=== PATIENT | male | born 1995 | race Two or more races ===

== ENCOUNTER 2024-07-14 04:07 | Emergency (ER) | payer SELFPAY ==
[2024-07-14 04:09] VITALS: BMI 29.0
--- NOTE | 2024-07-14 04:17 | PD.EDADULT ---
ED General RME/HPI General Chief complaint: General Adult/Misc Complain Stated complaint: SEVERE DEHYDRATION Time Seen by Provider: 07/14/24 04:16 Arrival date/time: 07/14/24 04:07 RME / HPI RME / HPI narrative: Patient is 28 years old male with past medical history of marijuana use presented to the ED complaining of nausea, vomiting and dehydration. He reports he smoked marijuana 5 days ago and over the next day he developed multiple episodes of vomiting and was not able to hold anything down. His symptoms were improving and today he was just feeling nauseous however he also started feeling severely dehydrated because of poor oral intake within the last 5 days. He denies any fever, chills, diarrhea, melena, bloody emesis, chest pain or shortness of breath. He reports he smokes marijuana but not daily anymore and whenever he smokes he develop this symptoms. He denies any other illicit drug use or smoking tobacco. He drinks alcohol socially. Related Data Home Medications ?Medication ?Instructions ?Recorded ?Confirmed ranitidine HCl 150 mg tablet 150 mg PO BID 12/01/18 12/01/18 sucralfate 1 gram tablet 1 g PO BID 12/01/18 12/01/18 Previous Rx's ?Medication ?Instructions ?Recorded ondansetron 4 mg disintegrating See Rx Instructions .Route 08/24/18 tablet .COMPLEX #20 tabs ondansetron 4 mg disintegrating 4 mg PO Q8H PRN nausea and 07/14/24 tablet vomiting #14 tabs Allergies Allergy/AdvReac Type Severity Reaction Status Date / Time No Known Allergies Allergy Verified 07/14/24 04:08 Review of Systems Review of Systems Systems Reviewed: All systems reviewed, normal except as documented ED Exam Narrative Physical exam: Gen: Well-developed and well-nourished. HEENT: NCAT, PERRLA, EOMI, MMM, anicteric conjunctivae. CVS: normal S1 and S2. RRR. No M/R/G. Resp: CTA B/L. No rhonchi, rales, crackles or wheezing. Abd: soft, non-tender, non-distended. BS+ in all 4 quadrants. MSK: Good ROM in BUE & BLE. No edema or rash. Neuro: CN II-XII grossly intact. Strength 5/5 in BUE & BLE. Alert and oriented x3. Psych: appropriate mood and affect. Course Quality Measures none Orders Category Date Time Status Ondansetron Odt [Zofran Odt] Med 07/14/24 04:24 Once 4 mg PO X1 ONE Vital Signs Vital signs: Vital Signs Temperature 99.0 F 07/14/24 04:20 Pulse Rate 64 07/14/24 04:20 Respiratory Rate 18 07/14/24 04:20 Blood Pressure 142/72 H 07/14/24 04:20 Pulse Oximetry (%) 97 07/14/24 04:20 Oxygen Delivery Method Room Air 07/14/24 04:20 [facility] Patient data External records reviewed:: [facility] previous records Clinical information provided by:: patient Social determinants that could affect healthcare access:: substance use Patient has the following chronic illnesses:: Marijuana use disorder How is presenting disease/condition affected by chronic disease/condition?: caused by Evaluation data The following diagnostics were reviewed and interpreted by me:: other (specify) Lab and/or radiology exams considered but not ordered:: cbc, cmp Interpretation Summary: No diagnostics indicated. Medications Medications considered but not ordered:: None. Medication administrations:: Medication Administration History Ondansetron HCl (Ondansetron Odt 4 Mg Tabrap) 4 mg PO X1 ONE; Protocol Stop: 07/14/24 04:25 Ondansetron 4 mg p.o. Consultations Consultation(s) initiated? (list below): No Diagnosis Differential Diagnosis ED Complaint MDM: Cannabis hyperemesis syndrome, food poisoning Most likely diagnosis given after review of the tests above:: Cannabis hyperemesis syndrome Admission Indicated Admission indicated?: not indicated Explain why admission is indicated or not indicated:: Vitals are stable. Patient is clinically stable. Patient is likely suffering from cannabis hyperemesis syndrome and was previously seen in the ED for similar complains. No admission is indicated. Admission Request Was there a request for admission?: No Disposition Plan Disposition Plan: Discharge Discharge Attestation Discharge Attestation: The patient and all family members were given an opportunity to ask questions and understood the discharge instructions. Discharge instructions specifically effects, indications for sooner follow up or return to the emergency department, and the expected course of current diagnosis. Patient condition: Stable Medical Decision Making MDM Narrative MDM Narrative: Patient is likely suffering from cannabis hyperemesis syndrome, was seen previously in the ED for similar complaint. He was given ondansetron 4 mg p.o. x 1. He was instructed to stop using marijuana. He was also recommended to increase oral intake of fluids. Follow-up with PCP outpatient. Differential Diagnosis Differential Diagnosis: Cannabis hyperemesis syndrome, food poisoning Discharge Plan Plan Patient Disposition: HOME (Self Care) Patient condition on transfer: Stable Prescriptions/Referrals Prescriptions/Med Rec: New ondansetron 4 mg tablet,disintegrating 4 mg PO Q8H PRN (Reason: nausea and vomiting) Qty: 14 0RF No Action ondansetron 4 mg tablet,disintegrating See Rx Instructions .Route .COMPLEX Qty: 20 0RF Rx Instructions: 1-2 tabs SL Q6-8 hours prn nausea / vomiting sucralfate 1 gram Tablet 1 g PO BID ranitidine HCl 150 mg Tablet 150 mg PO BID Problem List Clinical Impression: Cannabis hyperemesis syndrome 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 Enciso: 1. After evaluation, you are not dehydrated. But you are not severely dehydrated so we can treat this at home. 2. Try to abstain from marijuana, if applicable. 3. Your job is to stay hydrated.? Zofran for nausea/vomiting.? Increase oral fluid and maintain clear urine.? If dark or yellow, increase oral fluid. 4. Some good choices are water (but not only water because it will cause electrolyte abnormalities), sports drinks like Gatorade (with less sugar content), coconut water, chicken stock, and other fluid with electrolytes (like Pedialyte). 5. See a private doctor on 07/17/2024 if not completely better. 6. Seek immediate medical care with worsening or with any concerns. Print Language: Ukrainian Stand Alone Forms: Susy Award Info., Patient Portal Info Letter
[2024-07-14 04:20] VITALS: BP 142/72; PULSE 64; RESP 18; TEMP 37.2; O2SAT 97
[2024-07-14] MEDS: ONDANSETRON ODT 4 MG TABRAP PO (04:41)
[2024-07-14] MEDS: PANTOPRAZOLE 40 MG TABLET PO (04:45)
[2024-07-14 04:56] VITALS: RESP 18
== END 2024-07-14 04:56 | disposition home or self-care (01) ==
LOC: SERX 05:58
PROVIDERS: Emergency Provider Emergency Medicine; PCP Physician Assistant
DX: R11.2 Nausea with vomiting, unspecified (principal); F12.10 Cannabis abuse, uncomplicated
CPT/HCPCS: 99282; Q0162; A9270